=== PATIENT | female | born 1930 | race Caucasian/White ===

== ENCOUNTER → 2016-12-21 | Day surgery (SDC) | payer OTHER ==
--- NOTE | 2016-12-22 10:20 | PATH ---
Surgical Pathology Report Patient Name: KIM KABA [facility]. Rec. #: [id number] /Age/Gender: 1930 (Age: 86) / F Account: [id number] Location: [facility] Taken: 12/21/2016 Received: 12/21/2016 Reported: 12/22/2016 Physicians: Dewey Osborn M.D. Specimen(s) Received A: LEFT BREAST SPECIMEN WITH CALIFICATIONS B: LEFT BREAST SPECIMEN WITHOUT CALCIFICATIONS Clinical History Nonpalpable lesion, microcalcification, suspicious Final Diagnosis A. LEFT BREAST, WITH CALCIFICATION, STEREOTACTIC NEEDLE CORE BIOPSY: SCLEROSED FIBROADENOMA WITH STROMAL CALCIFICATION. B. LEFT BREAST, WITHOUT CALCIFICATION, STEREOTACTIC NEEDLE CORE BIOPSY: BENIGN BREAST TISSUE WITH FIBROCYSTIC CHANGES INCLUDING STROMAL FIBROSIS AND DUCTAL DILATATION. MICROCALCIFICATIONS ARE IDENTIFIED WITHIN BENIGN DUCTAL STRUCTURES. Electronically Signed Tony Perez M.D. Gross Description A. Received in formalin, labeled "left breast with calcification," is a 2.1 x 1.8 x 0.3 cm aggregate of multiple lord-yellow, irregular to cylindrical portions of fibroadipose tissue. The formalin is filtered and the specimen is entirely submitted in one cassette. B. Received in formalin, labeled "left breast without calcification," is a 2.2 x 2.0 x 0.3 cm aggregate of multiple lord-yellow, irregular to cylindrical portions of fibroadipose tissue. The formalin is filtered and the specimen is entirely submitted in one cassette. Time to formalin fixation: 5 minutes Total formalin fixation time: Approximately 7 hours. /12/21/2016 [facility]12/21/2016
== END | disposition home or self-care (01) ==
LOC: FMAMMOTONE 09:49
PROVIDERS: ATTEND Internal Medicine Geriatric Medicine
PROC: 0HBU3ZX Excision of Left Breast, Percutaneous Approach, Diagnostic (ICD-10-PCS; principal; 2016-12-21)
DX: D24.2 Benign neoplasm of left breast (principal); N64.89 Other specified disorders of breast; R92.1 Mammographic calcification found on diagnostic imaging of breast
CPT/HCPCS: 19081; 87899; 88305-TC; A4648